=== PATIENT | female | born 1945 | race Caucasian/White ===

== ENCOUNTER 2017-11-18 16:06 | Emergency (ER) | payer MEDICARE ==
--- NOTE | 2017-11-18 16:13 | ED.PDOC ---
History of Present Illness - General Chief Complaint: Cardiovascular Problem Stated Complaint: elevated HR, Palpitations Time Seen by Provider: 11/18/17 16:11 Source: patient, RN notes reviewed, Vital Signs reviewed Additional Information: Pt reports palpitations for about 2 hours after lunch today. She denies passing out. She denies shortness of breath. Pt in no distress. 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: central Activities at Onset: none Prior Chest Pain/Cardiac Workup: no prior chest pain Improving Factors: nothing Aspirin Treatment Today: no aspirin today Associated Symptoms: denies symptoms Allergies/Adverse Reactions: Allergies Penicillins Allergy (Verified 11/18/17 16:49) Rofecoxib [From Vioxx] Allergy (Verified 11/18/17 16:49) Sulfa Antibiotics Allergy (Verified 11/18/17 16:49) Review of Systems - Review of Systems Constitutional: States: no symptoms reported EENTM: States: no symptoms reported Respiratory: States: no symptoms reported Cardiology: States: see HPI, palpitations Gastrointestinal/Abdominal: States: no symptoms reported Genitourinary: States: no symptoms reported Musculoskeletal: States: no symptoms reported Skin: States: no symptoms reported Neurological: States: no symptoms reported Endocrine: States: no symptoms reported Hematologic/Lymphatic: States: no symptoms reported Family Medical History - Family History Mother Family History: No Known Physical Exam - Physical Exam General Appearance: Anxious, Comfortable, No apparent distress, Well Developed, Well Groomed, Well Hydrated, Well Nourished Eyes, Ears, Nose, Throat Exam: normal ENT inspection, pharynx normal Neck: non-tender, full range of motion, supple Respiratory: lungs clear, normal breath sounds, no respiratory distress, no accessory muscle use Cardiovascular/Chest: normal peripheral pulses, regular rate, rhythm, no edema, no murmur Gastrointestinal/Abdominal: non tender, soft Extremity: normal range of motion, non-tender, normal inspection 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 Pt stable for discharge home with 24 hour Holter monitoring. Pt given strict return precautions as well. 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] .ONCE 11/18/17 16:15 EKG STAT Laboratory Results - last 24 hr 11/18/17 11/18/17 11/18/17 16:20 16:20 16:20 WBC 5.5 RBC 5.18 Hgb 15.3 Hct 45.1 MCV 87.1 MCH 29.6 MCHC 34.0 RDW 13.6 Plt Count 198 MPV 8.0 Absolute Neuts (auto) 3.40 Absolute Lymphs (auto) 1.60 Absolute Monos (auto) 0.40 Absolute Eos (auto) 0.10 Absolute Basos (auto) 0.00 Neutrophils % 61.1 Lymphocytes % 29.4 Monocytes % 7.5 Eosinophils % 1.5 Basophils % 0.5 Sodium 133 L Potassium 3.6 Chloride 100 L Carbon Dioxide 25 Anion Gap 11.6 L BUN 16 Creatinine 0.71 BUN/Creatinine Ratio 22.5 H Random Glucose 124 H Serum Osmolality 269.0 L Calcium 9.1 Total Bilirubin 0.4 AST 24 ALT 26 Alkaline Phosphatase 71 Creatine Kinase 166 H CK-MB (CK-2) 2.4 CK-MB (CK-2) % Not Reportable Troponin I < 0.02 Serum Total Protein 7.0 Albumin 4.3 Globulin 2.7 Albumin/Globulin Ratio 1.6 TSH 0.87 Urine Color Urine Appearance Urine pH Ur Specific [place] Urine Protein Urine Glucose (UA) Urine Ketones Urine Blood Urine Nitrite Urine Bilirubin Urine Urobilinogen Ur Leukocyte Esterase Urine RBC Urine WBC Ur Epithelial Cells Urine Bacteria 11/18/17 16:51 WBC RBC Hgb Hct MCV MCH MCHC RDW Plt Count MPV Absolute Neuts (auto) Absolute Lymphs (auto) Absolute Monos (auto) Absolute Eos (auto) Absolute Basos (auto) Neutrophils % Lymphocytes % Monocytes % Eosinophils % Basophils % Sodium Potassium Chloride Carbon Dioxide Anion Gap BUN Creatinine BUN/Creatinine Ratio Random Glucose Serum Osmolality Calcium Total Bilirubin AST ALT Alkaline Phosphatase Creatine Kinase CK-MB (CK-2) CK-MB (CK-2) % Troponin I Serum Total Protein Albumin Globulin Albumin/Globulin Ratio TSH Urine Color Yellow Urine Appearance Clear Urine pH 7.0 Ur Specific [place] 1.015 Urine Protein Negative Urine Glucose (UA) Negative Urine Ketones 40 H Urine Blood Small H Urine Nitrite Negative Urine Bilirubin Negative Urine Urobilinogen 0.2 Ur Leukocyte Esterase Negative Urine RBC 1-3 Urine WBC 0-1 Ur Epithelial Cells 0-1 Urine Bacteria 0 11/18/17 16:10 Temperature 99.1 F Pulse Rate [ 81 left brachial] Respiratory 20 Rate Blood Pressure 151/74 [left brachial] O2 Sat by Pulse 99 Oximetry - EKG/XRAY/CT EKG: Sinus - NSR. , no ST T wave changes Departure - Departure Clinical Impression: Palpitations Time of Disposition: 18:15 Disposition: Discharge to Home or Self Care Condition: Good Departure Forms: ED Discharge - Pt. Copy, Patient Portal Self Enrollment Instructions: DI for Palpitations Additional Instructions: Holter monitor to assess for abnormal heart rhythm. Return to ER if condition recurs or worsens. Follow-up with Primary Care Provider to review Holter Monitor results.
[2017-11-18 16:39] VITALS: TEMP 99.1; O2SAT 99
--- NOTE | 2017-11-18 17:02 | RAD ---
Study: Frontal and Lateral Views of the Chest. Indication: chest pain, palpitations Comparison: None. Impression: Heart size normal. Atherosclerosis aorta. Lungs hyperexpanded but clear. No acute osseous abnormality. Electronically signed by: Ortega Andujar MD 11/18/2017 5:01 PM MEDICAL STAFF COORDINATOR
[2017-11-18 19:10] VITALS: BP 132/74
== END 2017-11-18 18:40 | disposition home or self-care (01) ==
LOC: ER 16:06
DX: R00.2 Palpitations (principal); Z88.0 Allergy status to penicillin; Z88.2 Allergy status to sulfonamides; Z88.8 Allergy status to other drugs, medicaments and biological substances